=== PATIENT | male | born 1995 | race Caucasian/White ===

== ENCOUNTER 2024-01-12 06:54 | Emergency (ER) | payer OTHER ==
[~2024-01-12] VITALS: Ht 188 cm; Wt 90.7 kg
[2024-01-12] MEDS ORDERED: BUPR100 PO (07:10)
[2024-01-12] MEDS ORDERED: DESCOVY 120-151 EACH PO (07:10)
[2024-01-12] MEDS ORDERED: Ibuprofen 600 MG Tab PO ONE (07:15)
[2024-01-12] MEDS ORDERED: Methocarbamol 500 MG Tab PO ONE (07:15)
[2024-01-12] MEDS ORDERED: Robaxin750 MG PO (08:14)
[2024-01-12] MEDS ORDERED: IBUP400 PO (08:14)
[2024-01-12] MEDS ORDERED: FAMO20 PO (08:14)
== END 2024-01-12 08:21 | disposition home or self-care (01) ==
LOC: ER 06:54
DX: M26.621 Arthralgia of right temporomandibular joint (principal); Z79.899 Other long term (current) drug therapy
CPT/HCPCS: 70110; 99283-25; A9270